=== PATIENT | female | born 1955 | race American Indian/Alaskan Native ===

== ENCOUNTER 2019-07-09 13:20 | Emergency (ER) | payer OTHER, SELFPAY ==
--- NOTE | 2019-07-09 13:41 | Consultation ---
History of Present Illness History of present illness: [facility] Date of Service: 07/09/2019 13:25:39 Impression: MCA Distribution Infarct Comments: 1. Cardioembolic stroke 2. Small vessel disease/lacune 3. Thromboembolic, [id number] mechanism 4. Hypercoagulable state-related infarct 5. Thrombotic mechanism, large artery disease 6. Transient ischemic attack Metrics: Last Known Well: 07/08/2019 22:00:00 [facility] Notification Time: 07/09/2019 13:25:12 Arrival Time: 07/09/2019 13:20:00 Stamp Time: 07/09/2019 13:25:39 Time First Login Attempt: 07/09/2019 13:28:48 Video Start Time: 07/09/2019 13:28:48 Symptoms: WEAKNESS NIHSS Start Assessment Time: 07/09/2019 13:31:24 Patient is not a candidate for tPA. Patient was not deemed candidate for tPA thrombolytics because of Last Well Known Above 4.5 Hours. Video End Time: 07/09/2019 13:39:10 CT head was reviewed. Advanced imaging CTA head and neck pending. Radiologist was not called back for review of advanced imaging because pending ER Physician notified of the decision on thrombolytics management on 07/09/2019 13:37:00 Our recommendations are outlined below. Recommendations: Activate Stroke Protocol Admission/Order Set Stroke/Telemetry Floor Neuro Checks Bedside Swallow Eval DVT Prophylaxis IV Fluids, Normal Saline Head of Bed Below 30 Degrees Euglycemia and Avoid Hyperthermia (PRN Acetaminophen) ASA Recommended Scan: MRI Head Without Contrast Echocardiogram - Transthoracic Echocardiogram Lipid Panel to Be Obtained, if Not Done in the Last Three Months Therapies: Physical Therapy, Occupational Therapy, Speech Therapy Assessment When Applicable Dysphaghia Screen: Swallow Evaluation, Bedside NPO Until Swallow Evaluation Disposition: Follow up with Teleneurology Follow up Sign Out: Discussed with Emergency Department Provider History of Present Illness: Patient is a 63 year old Female. Patient was brought by EMS for symptoms of WEAKNESS 63 y/o woman with h/o CHF who presents with left sided weakness. Last known well at 2200 as per daughter at bedside. CT head reviewed and case discussed with ED staff. CTA head/neck pending CT head was reviewed. Examination: 1A: Level of Consciousness - Arouses to minor stimulation + 1 1B: Ask Month and Age - Could Not Answer Either Question Correctly + 2 1C: Blink Eyes & Squeeze Hands - Performs 0 Tasks + 2 2: Test Horizontal Extraocular Movements - Normal + 0 3: Test Visual Toussaint - Complete Hemianopia + 2 4: Test Facial Palsy (Use Grimace if Obtunded) - Minor paralysis (flat nasolabial fold, smile asymetry) + 1 5A: Test Left Arm Motor Drift - No Effort Against [place] + 3 5B: Test Right Arm Motor Drift - No Drift for 10 Seconds + 0 6A: Test Left Leg Motor Drift - No Effort Against [place] + 3 6B: Test Right Leg Motor Drift - No Drift for 5 Seconds + 0 7: Test Limb Ataxia (FNF/Heel-Santos) - Does Not Understand + 0 8: Test Sensation - Mild-Moderate Loss: Less Sharp/More Dull + 1 9: Test Language/Aphasia - Normal; No aphasia + 0 10: Test Dysarthria - Mute/Anarthric + 2 11: Test Extinction/Inattention - Profound petros-inattention (ex: does not recognize own hand) + 2 NIHSS Score: 19 Patient family was informed the Neurology Consult would happen via TeleHealth consult by way of interactive audio and video telecommunications and consented to receiving care in this manner. Due to the immediate potential for life-threatening deterioration due to underlying acute neurologic illness, I spent 15 minutes providing critical care. This time includes time for face to face visit via telemedicine, review of medical records, imaging studies and discussion of findings with providers, the patient and/or family. Dr Francisco Villareal [facility] Case [id number] Medications and Allergies Allergies Allergy/AdvReac Type Severity Reaction Status Date / Time No Known Allergies Allergy Unverified 07/09/19 13:27 Home Medications Medication Instructions Recorded Confirmed Last Taken Type AtorvaSTATin 10 mg PO QDAY 04/03/19 04/03/19 04/02/19 History ISOSORBIDE MONOnitrate [Imdur ER] 30 mg PO QDAY 04/03/19 04/03/19 04/02/19 History Metoprolol Xl [Metoprolol 100 mg PO QDAY 04/03/19 04/03/19 04/02/19 History SUCCINATE ER TAB] hydrALAZINE [Apresoline TAB] 25 mg PO TID 04/03/19 04/03/19 04/02/19 History Megestrol 400 mg PO QDAY 30 Days 04/06/19 Unknown Rx Pantoprazole [Protonix TAB] 40 mg PO QDAY #30 tablet 04/06/19 Unknown Rx Sucralfate [Carafate] 1 gm PO ACHS 30 Days 04/06/19 Unknown Rx
--- NOTE | 2019-07-09 13:49 | Emergency Department Report ---
ED Neuro Deficit HPI - General Chief Complaint: Neuro Symptoms/Deficit Stated Complaint: POSS CVA Time Seen by Provider: 07/09/19 13:38 Source: patient Mode of arrival: Stretcher Limitations: Other - History of Present Illness Initial Comments: 63-year-old [place] female with history of hypertension, CHF, presents to ED with possible stroke. Last known well time was 10 PM last night. Patient's daughter states that the patient's grandson informed her that the patient was having difficulty speaking, so she went to check on her. Daughter states patient told her that when she awoke this morning to pray, she had difficulty in doing so because her legs were weak. EMS was called. Patient appears to have left- sided weakness. -: This morning Location: speech, left arm, left leg Presenting Symptoms: Present: Weak/Paralyzed One Side Place: home Severity: severe Improves With: none Worsens With: none Associated Symptoms: denies other symptoms Treatments Prior to Arrival: none - Related Data Home Medications: Home Medications Medication Instructions Recorded Confirmed Last Taken AtorvaSTATin 10 mg PO QDAY 04/03/19 04/03/19 04/02/19 ISOSORBIDE MONOnitrate [Imdur ER] 30 mg PO QDAY 04/03/19 04/03/19 04/02/19 Metoprolol Xl [Metoprolol 100 mg PO QDAY 04/03/19 04/03/19 04/02/19 SUCCINATE ER TAB] hydrALAZINE [Apresoline TAB] 25 mg PO TID 04/03/19 04/03/19 04/02/19 Previous Rx's Medication Instructions Recorded Last Taken Type Megestrol 400 mg PO QDAY 30 Days 04/06/19 Unknown Rx Pantoprazole [Protonix TAB] 40 mg PO QDAY #30 tablet 04/06/19 Unknown Rx Sucralfate [Carafate] 1 gm PO ACHS 30 Days 04/06/19 Unknown Rx Allergies/Adverse Reactions: Allergies Allergy/AdvReac Type Severity Reaction Status Date / Time No Known Allergies Allergy Unverified 07/09/19 13:27 ED Review of Systems ROS: Stated complaint: POSS CVA Other details as noted in HPI Comment: All other systems reviewed and negative Neurological: weakness ED Past Medical Hx - Past Medical History Previous Medical History?: Yes Hx Hypertension: Yes Hx Heart Attack/AMI: No Hx Congestive Heart Failure: Yes Hx Diabetes: No Hx Deep Vein Thrombosis: No Hx Pulmonary Embolism: No Hx Liver Disease: No Hx Sickle Cell Disease: No Hx Seizures: No Hx Kidney Stones: No Hx Asthma: No Hx COPD: No Hx Tuberculosis: Yes (2017) - Surgical History Hx Open Heart Surgery: No Hx Internal Defibrillator: No Hx Cholecystectomy: No Hx Appendectomy: No Hx Breast Surgery: No - Social History Smoking Status: Never Smoker Substance Use Type: None - Medications Home Medications: Home Medications Medication Instructions Recorded Confirmed Last Taken Type AtorvaSTATin 10 mg PO QDAY 04/03/19 04/03/19 04/02/19 History ISOSORBIDE MONOnitrate [Imdur ER] 30 mg PO QDAY 04/03/19 04/03/19 04/02/19 Hist ory Metoprolol Xl [Metoprolol 100 mg PO QDAY 04/03/19 04/03/19 04/02/19 History SUCCINATE ER TAB] hydrALAZINE [Apresoline TAB] 25 mg PO TID 04/03/19 04/03/19 04/02/19 History Megestrol 400 mg PO QDAY 30 Days 04/06/19 Unknown Rx Pantoprazole [Protonix TAB] 40 mg PO QDAY #30 tablet 04/06/19 Unknown Rx Sucralfate [Carafate] 1 gm PO ACHS 30 Days 04/06/19 Unknown Rx ED Neuro Physical Exam - General Limitations: Other General appearance: lethargic Suspected Stroke: Yes - Head Head exam: Present: atraumatic, normocephalic - Eye Eye exam: Present: PERRL, other (rightward gave preference) - ENT ENT exam: Present: mucous membranes moist - Neck Neck exam: Present: normal inspection - Respiratory Respiratory exam: Present: normal lung sounds bilaterally. Absent: respiratory distress - Cardiovascular Cardiovascular Exam: Present: regular rate, normal rhythm - GI/Abdominal GI/Abdominal exam: Present: soft. Absent: distended, tenderness - Extremities Exam Extremities exam: Present: normal inspection - NIHSS Assessment Interval: Baseline 1a. Level of Consciousness: arousable/minor stimuli 1b. LOC Questions: answers no questions correctly 1c. LOC Commands: performs no tasks correctly 2. Best Gaze: forced deviation 3. Visual: complete hemianopia 4. Facial Palsy: minor paralysis 5b. Motor Arm Right: no drift 5a. Motor Arm Left: no gravity effort 6a. Motor Leg Left: no gravity effort 6b. Motor Leg Right: no drift 7. Limb Ataxia: absent 8. Sensory: mild/moderate sensory loss 9. Best Language: no aphasia 10. Dysarthria: severe dysarthria 11. Extinction/Inattention: profound inattention Total Score: 21 Stroke Severity: Severe Stroke - Skin Skin exam: Present: warm, dry, intact, normal color ED Course Vital Signs 07/09/19 07/09/19 07/09/19 14:00 14:15 14:30 Pulse Rate Respiratory Rate Blood Pressure 134/76 134/76 O2 Sat by Pulse 99 100 99 Oximetry 07/09/19 07/09/19 07/09/19 14:57 15:00 15:15 Pulse Rate 57 L 58 L 80 Respiratory 15 16 14 Rate Blood Pressure 142/81 142/81 O2 Sat by Pulse 99 99 99 Oximetry 07/09/19 15:31 Pulse Rate 73 Respiratory 10 L Rate Blood Pressure 145/85 O2 Sat by Pulse 99 Oximetry - Consultations Consultation #1: 07/09/19 14:57 Spoke w/ Dr Howe, teleneurologist. States he has contacted [place] and spoke with their neurologist and neurosurgeon for transfer. CTA shows proximal occlusion in right internal carotid. Consultation #2: 07/09/19 15:07 Spoke w/ Elizabeth Hilario (neurologist) and Minesh (neurointensivist). They want pt transferred to [facility] for neurointervention. Will arrange transport. - Lab Data Result diagrams: 07/09/19 14:00 07/09/19 14:00 Lab Results 07/09/19 07/09/19 07/09/19 Range/Units 13:59 13:59 14:00 WBC 3.5 L (4.5-11.0) K/mm3 RBC 4.87 (3.65-5.03) M/mm3 Hgb 12.8 (10.1-14.3) gm/dl Hct 39.7 (30.3-42.9) % MCV 82 (79-97) fl MCH 26 L (28-32) pg MCHC 32 (30-34) % RDW 13.9 (13.2-15.2) % Plt Count 164 (140-440) K/mm3 Lymph % (Auto) 44.3 H (13.4-35.0) % [place]linger % (Auto) 12.6 H (0.0-7.3) % Eos % (Auto) 0.8 (0.0-4.3) % Baso % (Auto) 1.5 (0.0-1.8) % Lymph # 1.6 (1.2-5.4) K/mm3 [place]linger # 0.4 (0.0-0.8) K/mm3 Eos # 0.0 (0.0-0.4) K/mm3 Baso # 0.1 (0.0-0.1) K/mm3 Seg Neutrophils % 40.8 (40.0-70.0) % Seg Neutrophils # 1.4 L (1.8-7.7) K/mm3 PT 13.7 (12.2-14.9) Sec. INR 1.04 (0.87-1.13) APTT 30.3 (24.2-36.6) Sec. Thrombin Time 17.4 (15.1-19.6) Sec. Sodium (137-145) mmol/L Potassium (3.6-5.0) mmol/L Chloride (98-107) mmol/L Carbon Dioxide (22-30) mmol/L Anion Gap mmol/L BUN (7-17) mg/dL Creatinine (0.7-1.2) mg/dL Estimated GFR ml/min BUN/Creatinine Ratio % Glucose (65-100) mg/dL POC Glucose (70-105) Calcium (8.4-10.2) mg/dL Troponin T (0.00-0.029) ng/mL 07/09/19 07/09/19 Range/Units 14:00 16:00 WBC (4.5-11.0) K/mm3 RBC (3.65-5.03) M/mm3 Hgb (10.1-14.3) gm/dl Hct (30.3-42.9) % MCV (79-97) fl MCH (28-32) pg MCHC (30-34) % RDW (13.2-15.2) % Plt Count (140-440) K/mm3 Lymph % (Auto) (13.4-35.0) % [place]linger % (Auto) (0.0-7.3) % Eos % (Auto) (0.0-4.3) % Baso % (Auto) (0.0-1.8) % Lymph # (1.2-5.4) K/mm3 [place]linger # (0.0-0.8) K/mm3 Eos # (0.0-0.4) K/mm3 Baso # (0.0-0.1) K/mm3 Seg Neutrophils % (40.0-70.0) % Seg Neutrophils # (1.8-7.7) K/mm3 PT (12.2-14.9) Sec. INR (0.87-1.13) APTT (24.2-36.6) Sec. Thrombin Time (15.1-19.6) Sec. Sodium 137 (137-145) mmol/L Potassium 4.2 (3.6-5.0) mmol/L Chloride 102.5 (98-107) mmol/L Carbon Dioxide 22 (22-30) mmol/L Anion Gap 17 mmol/L BUN 30 H (7-17) mg/dL Creatinine 1.3 H (0.7-1.2) mg/dL Estimated GFR 50 ml/min BUN/Creatinine Ratio 23 % Glucose 84 (65-100) mg/dL POC Glucose 72 (70-105) Calcium 8.7 (8.4-10.2) mg/dL Troponin T < 0.010 (0.00-0.029) ng/mL - Radiology Data Radiology results: report reviewed, image reviewed - Medical Decision Making 63 yo F w/ acute stroke. Pt outside the window for tPA. CT Head shows only evidence of old strokes, no acute findings. CTA shows right ICA occlusion. Pt will be transferred to [place] for neuro-intervention. - Differential Diagnosis ischemic CVA, hemorrhagic CVA Critical Care Time: Yes Critical care time in (mins) excluding proc time.: 35 Critical care attestation.: If time is entered above; I have spent that time in minutes in the direct care of this critically ill patient, excluding procedure time. Critical Care Time: 35 minutes ED Disposition Clinical Impression: CVA (cerebral vascular accident) Disposition: DC/TX-70 ANOTHER TYPE HLTHCARE Is pt being admited?: No Condition: Stable Referrals: PRIMARY CARE, [Primary Care Provider] - 3-5 Days
--- NOTE | 2019-07-09 13:51 | Cat Scan Report ---
CT head/brain wo con INDICATION / CLINICAL INFORMATION: 63 years Female; MAIN: CODE STROKE [id number] LT SIDE DROOP neuro deficits <6hrs or sx present upon a wakening. TECHNIQUE: Routine CT head without contrast. All CT scans at this location are performed using CT dos e reduction for ALARA by means of automated exposure control. COMPARISON: None. FINDINGS: BRAIN / INTRACRANIAL CONTENTS: There is an old infarct along the left frontoparietal junction with en cephalomalacia. The findings also appear compatible with chronic ischemic changes involving the cereb ellum, greater on the left. There is otherwise mild to moderate cerebral white matter disease most co nsistent with microvascular angiopathy. There is no clear CT evidence of acute intracranial hemorrhage or significant mass effect. There is m ild cerebral atrophy. The ventricular system is correspondingly appropriate in size and configuration . ORBITS: No significant abnormality of visualized orbits. SINUSES / MASTOIDS: No significant abnormality the visualized paranasal sinuses or mastoid air cells. CRANIOCERVICAL JUNCTION: No significant abnormality. ADDITIONAL FINDINGS: None. IMPRESSION: 1. There is microvascular angiopathy along with multiple old infarcts as detailed above. There is no clear CT evidence of acute intracranial hemorrhage. The study was specified as code stroke and called emergently to Dr. Richard in the ER at 12:46 PM [facility] standard time. Signer Name: Talha Arita MD Signed: 07/09/2019 1:47 PM Workstation Name: [id number]
[2019-07-09 14:17] LABS: Basophils # (Auto) 0.1 K/mm3 (0.0-0.1); Basophils % (Auto) 1.5 % (0.0-1.8); Eosinophils % (Auto) 0.8 % (0.0-4.3); Hematocrit 39.7 % (30.3-42.9); Hemoglobin 12.8 gm/dl (10.1-14.3); Lymphocytes # (Auto) 1.6 K/mm3 (1.2-5.4); Lymphocytes % (Auto) 44.3 % (13.4-35.0); Mean Corpuscular HGB Conc 32 % (30-34); Mean Corpuscular Volume 82 fl (79-97); Monocytes # (Auto) 0.4 K/mm3 (0.0-0.8); Monocytes % (Auto) 12.6 % (0.0-7.3); Platelet Count 164 K/mm3 (140-440); Red Blood Count 4.87 M/mm3 (3.65-5.03); Red Cell Distribution Width 13.9 % (13.2-15.2)
[2019-07-09 14:29] LABS: INR 1.04 (0.87-1.13)
[2019-07-09 14:30] LABS: Partial Thromboplastin Time 30.3 Sec. (24.2-36.6)
[2019-07-09 14:31] LABS: BUN/Creatinine Ratio 23; Blood Urea Nitrogen 30 mg/dL (7-17); Calcium 8.7 mg/dL (8.4-10.2); Hemolysis Index 3
--- NOTE | 2019-07-09 14:43 | Cat Scan Report ---
CTA neck with and without contrast CLINICAL HISTORY: Cerebrovascular accident. Technique: Multiple contiguous postcontrast axial CT images of the neck were obtained at 0.63 mm inte rvals. 3 plane MIP reconstructions were produced. Precontrast localizing images were also performed. All CT scans at this location are performed using the CT dose reduction for ALARA by means of automat ed exposure control. FINDINGS: There is atherosclerotic plaque involving the right carotid bifurcation and proximal right ICA at. There is tapering of the proximal right ICA with occlusion approximately 2 cm distal to the b ifurcation. There is irregularity of the distal right common carotid artery with relative linear luce ncy anteriorly which may reflect presence of dissection which courses a within the proximal right ext ernal carotid artery. There is mild scattered calcification involving the right common carotid artery without significant focal narrowing. There are foci of calcification involving the proximal left ICA without significant stenosis by NASCE T criteria. There is also mild plaque along the medial left common carotid artery without significant narrowing. There appears be atherosclerotic plaque involving the origins of the vertebral arteries with mild to moderate narrowing bilaterally. However, the more distal segments demonstrate appropriate caliber wit hout significant focal narrowing. There is mild calcification involving the arch of vessels without c lear evidence of significant stenosis. There is beam hardening this region resulting from the dense c ontrast within the adjacent venous structures. There is scattered opacification within the visualized upper lungs bilaterally. IMPRESSION: There is occlusion of the proximal right ICA as detailed above. There is mild calcification involving the left carotid bifurcation without significant stenosis by NA SCET criteria. There is mild to moderate narrowing of the origins of the vertebral arteries bilaterally. The CTA head will be dictated separately. Signer Name: Talha Arita MD Signed: 07/09/2019 2:39 PM Workstation Name: [id number]
--- NOTE | 2019-07-09 14:50 | Cat Scan Report ---
CTA head with and without IV contrast. CLINICAL HISTORY: Cerebrovascular accident. Technique: Multiple contiguous postcontrast CT images of the head were obtained at 0.63 mm intervals. 3 plane MIP reconstructions were obtained. Precontrast localizing images were also performed. CT scan s at this location are performed using the CT dose reduction for ALARA by means of automated exposure control. FINDINGS: There is occlusion of the distal right ICA to the terminus at. However, there is flow withi n the proximal right anterior and middle cerebral arteries which appears to be via collateral flow. H owever, there is slight relative decrease of contrast density within the more distal right MCA branch es indicative of decreased flow. There is milder scattered calcification involving the distal left ICA without significant stenosis by NASCET right anterior. Furthermore, there is no significant narrowing of the visualized left MCA bra nches. There is no significant stenosis involving the visualized distal vertebral or basilar arteries at. 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 There is no clear CTA evidence of intracranial aneurysm. The dural venous sinuses opacify with contra st. IMPRESSION: There is occlusion of the right ICA to the terminus with collateral flow within the right MCA. Howeve r, there is relative decrease contrast opacification of the more distal right MCA branches indicative of decreased flow. The findings were discussed with the neurologist at the time the study was being completed. Signer Name: Talha Arita MD Signed: 07/09/2019 2:46 PM Workstation Name: [id number]
[2019-07-09 15:44] VITALS: BP 145/85
== END 2019-07-09 16:45 | disposition other institution (70) ==
LOC: ED 13:20
DX: I63.89 Other cerebral infarction (principal); I11.0 Hypertensive heart disease with heart failure; I50.9 Heart failure, unspecified; Z79.899 Other long term (current) drug therapy
CPT/HCPCS: 36415; 70450; 70496; 70498; 80048; 82962; 84484; 85025; 85610; 85670; 85730; 99291; Q9967

== ENCOUNTER 2021-10-22 15:54 | Emergency (ER) | payer SELFPAY ==
[2021-10-22 16:16] VITALS: BP 138/92
[2021-10-22] MEDS ORDERED: BUMETANIDE 1 MG/4 ML INJ IV ONE (22:20)
--- NOTE | 2021-10-22 22:25 | Emergency Department Report ---
ED Shortness of Breath HPI - General Chief Complaint: Dyspnea/Respdistress Stated Complaint: SOB Time Seen by Provider: 10/22/21 22:03 Source: patient Mode of arrival: Ambulatory Limitations: No Limitations - History of Present Illness Initial Comments: Patient is a 66-year-old female with history of CHF brought in by daughter for evaluation of shortness of breath for the past 2 days. She denies any fever or chills. Notes increased swelling to both ankles and lower legs. Symptoms are worsened with exertion. She denies any chest pain. Severity: moderate Worsens With: lying flat, exertion Known History Of: congestive heart failure - Related Data Home Oxygen Therapy: No Home Medications Medication Instructions Recorded Confirmed Last Taken AtorvaSTATin 10 mg PO QDAY 04/03/19 04/03/19 04/02/19 ISOSORBIDE MONOnitrate [Imdur ER] 30 mg PO QDAY 04/03/19 04/03/19 04/02/19 Metoprolol Xl [Metoprolol 100 mg PO QDAY 04/03/19 04/03/19 04/02/19 SUCCINATE ER TAB] hydrALAZINE [Apresoline TAB] 25 mg PO TID 04/03/19 04/03/19 04/02/19 Previous Rx's Medication Instructions Recorded Last Taken Type Pantoprazole [Protonix TAB] 40 mg PO QDAY #30 tablet 04/06/19 Unknown Rx Sucralfate [Carafate] 1 gm PO ACHS 30 Days 04/06/19 Unknown Rx megestroL [Megestrol] 400 mg PO QDAY 30 Days 04/06/19 Unknown Rx Bumetanide [Bumex 1 mg tab] 1 mg PO DAILY #3 tab 10/22/21 Unknown Rx Allergies Allergy/AdvReac Type Severity Reaction Status Date / Time No Known Allergies Allergy Unverified 07/09/19 13:27 ED Review of Systems ROS: Stated complaint: SOB Other details as noted in HPI Constitutional: denies: chills, fever Respiratory: shortness of breath Cardiovascular: denies: chest pain, palpitations Endocrine: no symptoms reported Gastrointestinal: denies: abdominal pain, nausea, diarrhea Musculoskeletal: denies: back pain, joint swelling, arthralgia Skin: denies: rash, lesions Neurological: denies: headache, weakness, paresthesias Psychiatric: denies: anxiety, depression ED Past Medical Hx - Past Medical History Hx Hypertension: Yes Hx Heart Attack/AMI: No Hx Congestive Heart Failure: Yes Hx Diabetes: No Hx Deep Vein Thrombosis: No Hx Pulmonary Embolism: No Hx Liver Disease: No Hx Sickle Cell Disease: No Hx Seizures: No Hx Kidney Stones: No Hx Asthma: No Hx COPD: No Hx Tuberculosis: Yes (2016) - Surgical History Hx Open Heart Surgery: No Hx Internal Defibrillator: No Hx Cholecystectomy: No Hx Appendectomy: No Hx Breast Surgery: No - Social History Smoking Status: Never Smoker Substance Use Type: None - Medications Home Medications: Home Medications Medication Instructions Recorded Confirmed Last Taken Type AtorvaSTATin 10 mg PO QDAY 04/03/19 04/03/19 04/02/19 History ISOSORBIDE MONOnitrate [Imdur ER] 30 mg PO QDAY 04/03/19 04/03/19 04/02/19 History Metoprolol Xl [Metoprolol 100 mg PO QDAY 04/03/19 04/03/19 04/02/19 History SUCCINATE ER TAB] hydrALAZINE [Apresoline TAB] 25 mg PO TID 04/03/19 04/03/19 04/02/19 History Pantoprazole [Protonix TAB] 40 mg PO QDAY #30 tablet 04/06/19 Unknown Rx Sucralfate [Carafate] 1 gm PO ACHS 30 Days 04/06/19 Unknown Rx megestroL [Megestrol] 400 mg PO QDAY 30 Days 04/06/19 Unknown Rx Bumetanide [Bumex 1 mg tab] 1 mg PO DAILY #3 tab 10/22/21 Unknown Rx ED Physical Exam - General Limitations: No Limitations General appearance: alert, in no apparent distress - Head Head exam: Present: atraumatic, normocephalic - Eye Eye exam: Present: normal appearance, EOMI - Neck Neck exam: Present: normal inspection, other (No JVD) - Respiratory Respiratory exam: Present: normal lung sounds bilaterally. Absent: respiratory distress, wheezes - Cardiovascular Cardiovascular Exam: Present: regular rate, normal rhythm, normal heart sounds - GI/Abdominal GI/Abdominal exam: Present: soft, normal bowel sounds - Rectal Rectal exam: Present: deferred - Neurological Exam Neurological exam: Present: alert, oriented X3, CN II-XII intact - Psychiatric Psychiatric exam: Present: normal affect, normal mood - Skin Skin exam: Present: warm, dry, intact, normal color. Absent: rash ED Course Vital Signs 10/22/21 16:12 Temperature 98.7 F Pulse Rate 69 Respiratory 18 Rate Blood Pressure 138/92 O2 Sat by Pulse 100 Oximetry ED Medical Decision Making - Lab Data Result diagrams: 10/22/21 22:49 10/22/21 22:49 - Radiology Data Radiology results: image reviewed Cardiomegaly with patchy airspace densities. - Medical Decision Making Patient with history of CHF presenting with complaint of worsening dyspnea over the past 2 days. She was given 1 mg of IV Bumex. Chest x-ray reveals cardiomegaly without edema however patchy airspace densities were noted. On physical examination she does not exhibit signs of fluid overload. She has a normal white count and is afebrile. Infectious process unlikely. Patient did urinate. On reassessment states her symptoms are improved but reports some residual mild dyspnea. Oxygen saturations are normal. I believe patient would benefit from a short course of oral Bumex for further diuresis. I discussed the plan with the patient and daughter and gave strict return precautions. Critical care attestation.: If time is entered above; I have spent that time in minutes in the direct care of this critically ill patient, excluding procedure time. ED Disposition Clinical Impression: CHF exacerbation Disposition: 01 HOME / SELF CARE / HOMELESS Is pt being admited?: No Does the pt Need Aspirin: No Condition: Stable Instructions: Heart Failure, Self Care, [id number] Referrals: PRIMARY CARE [Primary Care Provider] - 3-5 Days Time of Disposition: 23:47 Print Language: [id number]
--- NOTE | 2021-10-22 22:55 | XRay Report ---
Chest single view INDICATION: Dyspnea IMPRESSION: Cardiomegaly. The lungs are mildly hyperexpanded and there is patchy airspace density sca ttered throughout both lungs especially near the apices. Signer Name: Stevenson Valladares MD Signed: 10/22/2021 10:50 PM Workstation Name: [email or web address]
[2021-10-22 23:06] LABS: Basophils # (Auto) 0.1 K/mm3 (0.0-0.1); Basophils % (Auto) 1.1 % (0.0-1.8); Eosinophils # (Auto) 0.1 K/mm3 (0.0-0.4); Eosinophils % (Auto) 1.4 % (0.0-4.3); Hematocrit 35.6 % (30.3-42.9); Hemoglobin 11.5 gm/dl (10.1-14.3); Lymphocytes # (Auto) 2.1 K/mm3 (1.2-5.4); Lymphocytes % (Auto) 39.5 % (13.4-35.0); Mean Corpuscular HGB Conc 32 % (30-34); Mean Corpuscular Volume 82 fl (79-97); Monocytes # (Auto) 0.6 K/mm3 (0.0-0.8); Monocytes % (Auto) 11.1 % (0.0-7.3); Platelet Count 198 K/mm3 (140-440); Red Blood Count 4.33 M/mm3 (3.65-5.03); Red Cell Distribution Width 15.4 % (13.2-15.2)
[2021-10-22 23:22] LABS: Albumin 3.7 g/dL (3.9-5); Calcium 8.6 mg/dL (8.4-10.2)
--- NOTE | 2021-10-23 20:30 | Electrocardiograph Report ---
[facility] Test Date: 2021-10-22 Test Time: 21:18:23 Pat Name: SPEEDY COX Department: Room: Gender: F Small Offset Printer: DANNY : 1955 Requested By: ERIBERTO ELISE Order Number: [id number] Reading MD: Jarvis Henderson Measurements Intervals [place] Rate: 67 P: 79 MD: 161 QRS: 102 QRSD: 99 T: 259 QT: 437 QTc: 462 Interpretive Statements Sinus rhythm Right axis deviation Left ventricle hypertrophy with marked repolarization abnormalities of LVH No previous ECG available for comparison Electronically Signed On 10-23-2021 20:30:30 EDT by Jarvis Henderson
== END 2021-10-23 00:03 | disposition home or self-care (01) ==
LOC: ED 15:54
DX: I50.9 Heart failure, unspecified (principal); I11.0 Hypertensive heart disease with heart failure; A15.9 Respiratory tuberculosis unspecified
CPT/HCPCS: 36415; 71045; 80053; 83880; 84484; 85025; 93005; 96374; 99284; J3490